=== PATIENT | male | born 1975 | race Caucasian/White ===

== ENCOUNTER 2019-11-18 23:54 | Emergency (ER) | payer BC ==
--- NOTE | 2019-11-19 00:25 | ED.PDOC ---
History of Present Illness - General Chief Complaint: General Stated Complaint: Friend feels like he is dehydrated Time Seen by Provider: 11/18/19 23:54 - History of Present Illness Initial Comments: 44-year-old male with history of alcoholism, presents with girlfriend who is concerned he may be dehydrated. States he has been drinking a large bottle of [employer] every day for 2 months. Pt is w/out complaint, is clearly intoxicated. girlfriend states she takes him to all the ERs in the area for iv fluids when he gets dehydrated. hx from pt is limited by his intoxication. Allergies/Adverse Reactions: Allergies NO KNOWN ALLERGY Allergy (Verified 11/19/19 00:21) Home Medications: Ambulatory Orders RX: Folate-Vitamin U35-Dssgnhzxo F [Intrinsi B12/Folate 800-500-20 Mcg-Mcg-mg] 1 tab PO DAILY #30 tab 11/19/19 Thiamine HCl [Thiamine] 50 mg PO DAILY #30 cap 11/19/19 cloNAZepam [KlonoPIN] 0.5 mg PO BID PRN #20 tab 11/19/19 Review of Systems - Review of Systems Review of Systems: 11/19/19 00:25 review of systems is limited by his intoxication Past Medical History (General) - Patient Medical History Hx Stroke: No Hx Congestive Heart Failure: No Hx Diabetes: No Hx MRSA: No - Vaccination History Hx Tetanus, Diphtheria Vaccination: No Hx Influenza Vaccination: No Hx Pneumococcal Vaccination: No - Social History Hx Alcohol Use: Yes Family Medical History - Family History Father Family History: Unknown Living Status: Still Living Physical Exam - Physical Exam Comments: General Appearance: Patient is awake, intoxicated. Skin: Warm and dry. No diaphoresis. No rash or other lesions. Head: Normocephalic/atraumatic. mild facial bruising that is healing. Eyes: PERRL, lids, conjunctiva and sclera unremarkable. EOMI intact. ENT: No nasal discharge. Oropharynx. Without erythema, exudate, lesions. Moist mucous membranes. Neck: Supple. No LAD. No tenderness. No JVD noted. Respiratory: Normal rate and effort. Breath sounds clear bilaterally. Cardiovascular: Regular rate. Heart sounds normal. No murmur. GI: Abdomen soft, non-distended and non-tender. No rebound/guarding. Bowel sounds normal. Back: No tenderness Musculoskeletal: Extremities- Normal range of motion. No effusion, cyanosis, edema. Neurological: lethargic, slurred speech. No facial palsy. Gag intact. No motor deficit, str symmetric. Progress - Progress Progress: 11/19/19 00:42 Vital Signs - 24 hr 11/18/19 23:54 Pulse Rate [ 89 Right Radial] Respiratory 18 Rate Blood Pressure 158/110 [Left Arm] O2 Sat by Pulse 93 L Oximetry 11/19/19 01:15 Sobriety has improved. VS, exam reassuring, ambulating, hever PO. Labs are without acute abnormality. with patient and friend, I have discussed findings, diff dx, plan of care, need for follow-up, and reasons to return to the ED. Safety Stop (Diagnostic Time-Out): Tachycardia: No Diagnostic Studies: Reviewed Diagnostic Certainty: moderate Patient/family feels safe with discharge: Yes - Results/Orders Results/Orders: 11/19/19 00:31 Laboratory Results - last 24 hr 11/19/19 11/19/19 00:31 00:31 WBC 5.8 RBC 6.12 H Hgb 15.1 Hct 46.7 MCV 76.3 L MCH 24.7 L MCHC 32.4 L RDW 20.6 H Plt Count 459 H MPV 6.4 L Absolute Neuts (auto) 3.80 Absolute Lymphs (auto) 1.20 Absolute Monos (auto) 0.60 Absolute Eos (auto) 0.00 Absolute Basos (auto) 0.10 Neutrophils % 65.7 Lymphocytes % 21.1 Monocytes % 10.8 H Eosinophils % 0.5 L Basophils % 1.9 Normal RBC Morphology Stain quality accept Sodium 139 Potassium 4.3 Chloride 99 L Carbon Dioxide 30 Anion Gap 14.3 BUN 7 Creatinine 0.75 BUN/Creatinine Ratio 9.3 L Random Glucose 85 Serum Osmolality 274.8 L Calcium 8.2 L Total Bilirubin 0.5 AST 174 H ALT 129 H Alkaline Phosphatase 53 Serum Total Protein 7.5 Albumin 3.4 Globulin 4.1 H Albumin/Globulin Ratio 0.8 L Departure - Departure Clinical Impression: Alcohol intoxication Disposition: Discharge to Home or Self Care Condition: Good Departure Forms: ED Discharge - Pt. Copy, Patient Portal Self Enrollment Instructions: Alcohol Withdrawal (DC), Alcohol Abuse and Alcoholism (DC) Diet: resume usual diet Activity: increase activity as tolerated Referrals: Eben,Nicole, DO [Primary Care Provider] - 1-5 Days Prescriptions: cloNAZepam [KlonoPIN] 0.5 mg PO BID PRN #20 tab PRN Reason: Anxiety RX: Folate-Vitamin I07-[id number] F [Intrinsi B12/Folate 800-500-20 Mcg-Mcg-mg] 1 tab PO DAILY #30 tab Thiamine HCl [Thiamine] 50 mg PO DAILY #30 cap Home Medications: Ambulatory Orders RX: Folate-Vitamin [id number]-Bfvydlruq F [Intrinsi B12/Folate 800-500-20 Mcg-Mcg-mg] 1 tab PO DAILY #30 tab 11/19/19 Thiamine HCl [Thiamine] 50 mg PO DAILY #30 cap 11/19/19 cloNAZepam [KlonoPIN] 0.5 mg PO BID PRN #20 tab 11/19/19 Comments: Bhargav Enamorado MD Emergency Medicine #[id number]
[2019-11-19 01:28] VITALS: TEMP 97.9
[2019-11-19 01:29] VITALS: BP 135/82; O2SAT 95
== END 2019-11-19 01:30 | disposition home or self-care (01) ==
LOC: ER 23:54
DX: F10.129 Alcohol abuse with intoxication, unspecified (principal)